=== PATIENT | male | born 1940 | race Caucasian/White ===

== ENCOUNTER 2016-06-28 17:00 | Inpatient (IN) | payer MEDICARE, OTHER ==
[~2016-06-28] VITALS: Ht 175.3 cm; Wt 63.6 kg
--- NOTE | ~2016-06-28 | DS ---
PATIENT'S NAME: WILNER DILLON [facility] AGE: 75 Y [address] ROOM: [id number] [place], [place] [address] LOCATION: [facility]U ADMIT DATE: 06/28/2016 Discharge Summary DISCHARGE DATE: 07/06/2016 FAMILY PHYSICIAN: Physician, Unknown ATTENDING PHYSICIAN: Liliane Sanchez HISTORY OF PRESENT ILLNESS: This 75-year-old male was transferred here from [facility] with the primary history of acute onset of difficulty tracking, which started on the morning of his admission. He played golf the day before, and did not have any problems. However, today, he noticed there were no symptoms to the left side, and actually did bumping to the wall on his left side primarily because of this difficulty. He also was noted to have difficulty putting on his shirt primarily because he could not manipulate his left hand into the shirt. He denies any headaches. He does not have any definite history of hypertension, except about two weeks ago, complained of some fatigue, and at that time, his blood pressure was slightly elevated. However, followup vital signs did not show persistent elevated high blood pressure. HOSPITAL COURSE: At the time of admission, the only abnormality on examination was a left homonymous hemianopsia on confrontation. There was no motor deficit and no sensory deficit apart from the visual problems noted above. The MRI of the brain, which he had on the day of admission then showed a right posterior temporal, as well as the right parietal intracerebral hemorrhage of varying age. From discussion with the radiologist, the feeling was that both the hemorrhages were subacute. While in the hospital, we went ahead and got a CT angiogram. The CT angiogram did not show any evidence of either aneurysm, or more significantly, any evidence of an arteriovenous malformation. He was initially admitted to the ICU (Intensive Care Unit), and was eventually transferred to the Neuro Trauma Unit. There was no further deterioration, and followup scan did not show any changes in the size of the hematomas that we had seen previously. He was seen in consultation by Dr. Faith, who felt that he would benefit from spending some time in the Rehabilitation Unit. He was also seen by the physiotherapist and the Occupational therapist. He was eventually transferred to the Inpatient Rehabilitation Unit on the 06 of July. 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 PATIENT'S NAME: WILNER DILLON [facility] AGE: 75 Y [address] ROOM: [address] [address] LOCATION: [facility] ADMIT DATE: 06/28/2016 Discharge Summary DISCHARGE DATE: 07/06/2016 FAMILY PHYSICIAN: Physician, Unknown ATTENDING PHYSICIAN: Liliane Sanchez MD MARIA FERNANDA PATE/esther /[id number] d: 07/07/16 0056 t: 07/11/16 1626, DISCHARGE SUMMARY
--- NOTE | ~2016-06-28 | HP ---
PATIENT'S NAME: WILNER DILLON [facility] AGE: 75 Y [address] ROOM: [place] [address] LOCATION: [facility] ADMIT DATE: 06/28/2016 History & Physical DISCHARGE DATE: FAMILY PHYSICIAN: PHYSICIAN, UNKNOWN ATTENDING PHYSICIAN: Liliane Sanchez DATE OF SERVICE: HISTORY OF PRESENT ILLNESS: I saw this 75-year-old male in the ICU today and was transferred here from [facility] with a primary complaint of acute onset of difficulty tracking, which occurred this morning. Yesterday, he went out and played golf, did not have any such problems, but today, he had some difficulty that he did bump while walking, fell into the wall on the left-side, and had difficulty putting the left arm of his shirt in, and had difficulty dressing primarily because he was putting the left-hand of the shirt inside out. He denies any headaches. He also denies any definite history of hypertension except he had a 2-week period when he complained of fatigue; and at that time, his blood pressure was slightly high. It was later reviewed by Dr. Artis Ruff; and at that time, his vital signs were normal and there was no evidence of hypertension. PAST MEDICAL HISTORY: He has had bilateral cataract surgery. The first one was on the 30 of May and the next was done on the 06 of June and he did not have any problems with that. In addition, he had inguinal herniorrhaphy many years ago and he is not sure which side he had the herniorrhaphy done. ALLERGIES: HE IS ALLERGIC TO PENICILLIN. MEDICATIONS: See the list in the admitting note. FAMILY HISTORY: Father had CT and stroke and also had diabetes, which was of late onset. His grandfather had CA of the prostate. REVIEW OF SYSTEMS: He denies any headaches. No neck pain. No chest pain. No abdominal pain. No weakness in the upper or lower extremities that he can perceive even though this morning when he was ambulating he did have some problems with his left lower extremity in the sense that while walking he had difficulty positioning his left lower limb. PHYSICAL EXAMINATION: PATIENT'S NAME: WILNER DILLON [facility] AGE: 75 Y [address] ROOM: [place] [address] LOCATION: [facility] ADMIT DATE: 06/28/2016 History & Physical DISCHARGE DATE: FAMILY PHYSICIAN: PHYSICIAN, UNKNOWN ATTENDING PHYSICIAN: Liliane Sanchez GENERAL: On examining him in the hospital, he is a 75-year-old male who is 5 feet, 9 inches tall, 145 pounds in weight. His blood pressure was 169/86, pulse was 67, was regular, respirations was 17, and O2 sats 98.5 on room air. HEENT: He had some abrasion on his nose and also the left-side of his face, which was where he ran into the wall this morning. Pupils were equal. NEUROLOGIC: He was awake. He was alert. He gave his all history. He is right-handed. NECK: There was no tenderness on palpating cervical spinous processes. No restriction of movement of the cervical spine. CHEST: Clear. HEART: Rate was regular. ABDOMEN: Soft. No area of tenderness. NEUROLOGICAL: The cranial nerve examination was normal. The motor examination was normal. Sensory exam was normal. There was no sensory inattention. Reflexes were normal. Toes were downgoing. Visual sifuentes, he had a left homonymous hemianopsia. LABORATORY DATA: He had an MRI of the brain done today and the MRI showed a right occipital hemorrhage with also right parietal hemorrhage and the MRI looked like both hemorrhages were subacute. IMPRESSION: Spontaneous intracerebral hemorrhage, query etiology. PLAN: The plan is to admit to the ICU, watching very carefully, and then follow the hemorrhage with MRIs and the MRI that he had which was with and without contrast did not really show any convincing evidence of a tumor. MD MARIA FERNANDA PATE/josel /[id number] D: [id number] T: [id number] HISTORY & PHYSICAL
--- NOTE | ~2016-06-28 | CON ---
PATIENT'S NAME: WILNER DILLON [facility] AGE: 75 Y [address] ROOM: [place] [address] LOCATION: [facility] ADMIT DATE: 06/28/2016 Consultation DISCHARGE DATE: FAMILY PHYSICIAN: PHYSICIAN, UNKNOWN ATTENDING PHYSICIAN: Liliane Puckett REFERRING PHYSICIAN: Mary Jane iDaz MD Consult for Dr. Puckett. This pleasant 75-year-old gentleman is referred for rehab/GIRP evaluation. He was admitted on 06/28/2016 with difficulty tracking and he ran into left side, wall on his left side, and suffered some abrasions on the forehead, left cheek, and nasal bridge, superficial. He is at the present time, reporting no headache, no dizziness, no vertigo. No nausea, no vomiting. No shortness of breath. Denied any double vision. He has however neglect of the left visual field and left distal temporal visual cut. He denies any similar condition in the past. Although says that way back and then a few months ago, he was not very able to keep the car on the d[place], but nothing has happened ever since. Except that he had cataract surgeries and he has been doing well. Also past history of significant, he had inguinal hernia repair, year unknown. Denied any smoking or drinking. ALLERGIES: HE IS ALLERGIC TO PENICILLIN. NOW, HE IS ALERT, WELL ORIENTED. VOICE IS CLEAR AND NOT WET. NO FACIAL WEAKNESS AND/OR DROOP AT THE PRESENT TIME. TONGUE AND SOFT PALATE ARE MOVING SYMMETRICAL. VOICE IS CLEAR AND NOT WET. VITALS: BLOOD PRESSURE 124/62, TEMPERATURE 98.6, PULSE IS 70, RESPIRATION RATE 20. HE IS 5 FEET 9 INCHES TALL AND WEIGHS 66.1 KG. HE IS AT THE PRESENT TIME ABLE TO WALK; HOWEVER, HE TRACKS TOWARDS THE LEFT AND RUNS INTO THINGS ON THE LEFT SIDE. HIS CT SCAN WITHOUT CONTRAST SHOWS TWO INTRACRANIAL BLEEDINGS, ONE OLD AND ONE NEW, AND AT THE PRESENT TIME, THERE IS NO GOOD EXPLANATION FOR THE INTRACRANIAL BLEEDING. DR. PUCKETT WAS ALSO THERE LATER ON AND HE SUGGESTED AN ARTERIOGRAM AND WE WILL SEE THE RESULT. PATIENT'S NAME: WILNER DILLON [facility] AGE: 75 Y [address] ROOM: [address] [address] LOCATION: [facility] ADMIT DATE: 06/28/2016 Consultation DISCHARGE DATE: FAMILY PHYSICIAN: PHYSICIAN, UNKNOWN ATTENDING PHYSICIAN: Liliane Puckett HE IS AT THE PRESENT TIME, MUSCLE STRENGTH ON THE LEFT SIDE ABOUT 4- TO 4/5 AND RIGHT SIDE 5/5. HE IS ON THE FOLLOWING MEDICATIONS. 1. OMEGA-3. 2. VITAMIN E. 3. VITAMIN D3. 4. ASCORBIC ACID. 5. NACL 0.9%. I FEEL THAT THIS GENTLEMAN WILL BENEFIT FROM INTENSIVE REHABILITATION. HE HAS BEEN AND INITIATED ON PT AND OT. I WILL ADD SPEECH THERAPY TO HIS THERAPIES, AND I FEEL THAT ABOUT 10 DAYS OF INTENSIVE REHABILITATION WILL BE GOOD ENOUGH FOR HIM TO GO BACK HOME AND BE MANAGED BY HIS . PLEASE SEE THE ORDERS. ALL THE ABOVE WAS EXPLAINED TO IN DETAIL. SHE VERBALIZED UNDERSTANDING AND AGREEMENT. THANK YOU FOR THIS REFERRAL. I WILL BE FOLLOWING ALONGSIDE WITH YOU. MD YONNY MACIAS/modl /[id number] d: 06/29/16 1442 t: 06/30/16 0842, CONSULTATION REPORT
[2016-06-28] MEDS ORDERED: VITAMIN E400 UNI2 PO (18:21)
[2016-06-28] MEDS ORDERED: ASCORBIC ACID500 MG PO (18:21)
[2016-06-28] MEDS ORDERED: ILEVRO1.7 ML OPHTH (18:21)
[2016-06-28] MEDS ORDERED: VITAMIN B-50 C0.4 MG PO (18:22)
[2016-06-28] MEDS ORDERED: SAW PALMETTO450 MG PO (18:22)
[2016-06-28] MEDS ORDERED: LUTEIN20 M1 PO (18:23)
[2016-06-28] MEDS ORDERED: VITAMIN D1000 UNIT PO (18:23)
[2016-06-28] MEDS ORDERED: FISH OIL 1,0001 EAC4 PO (18:23)
[2016-06-28] MEDS ORDERED: COQ-10100 MG PO (18:24)
[2016-07-05 04:26] LABS: CREATININE 0.9 mg/dL (0.6-1.3)
[2016-07-05 04:28] LABS: ESTIMATED GFR (MDRD EQUATION) > 60
== END 2016-07-06 09:20 | DRG 65 ==
LOC: GICU 17:35 → GPCU 17:35 → GICU 06-29 15:36 → GNTU 06-29 18:41 → GPCU 07-05 15:16
PROVIDERS: ADMIT Neurological Surgery
DX: I61.1 Nontraumatic intracerebral hemorrhage in hemisphere, cortical (principal); G81.94 Hemiplegia, unspecified affecting left nondominant side; H53.462 Homonymous bilateral field defects, left side; I10 Essential (primary) hypertension; Z88.0 Allergy status to penicillin; Z82.3 Family history of stroke; Z80.42 Family history of malignant neoplasm of prostate; Z98.42 Cataract extraction status, left eye; Z98.41 Cataract extraction status, right eye
CPT/HCPCS: Q9967

== ENCOUNTER 2016-07-06 09:37 | Inpatient (IN) | payer MEDICARE, OTHER ==
[~2016-07-06] VITALS: Ht 175.3 cm; Wt 63.2 kg
--- NOTE | ~2016-07-06 | DS ---
PATIENT'S NAME: WINLER DILLON [facility] AGE: 75 Y [address] ROOM: [address] [address] LOCATION: [facility] ADMIT DATE: 07/06/2016 Discharge Summary DISCHARGE DATE: 07/29/2016 FAMILY PHYSICIAN: Physician, Unknown ATTENDING PHYSICIAN: Fidencio Faith This 75-year-old gentleman was admitted to rehab unit on 07/06/2016, is discharged to home on 07/29/2016. 1. Unstable gait. 2. Dependent activities of daily and self-care. 3. Status post right occipital and right parietal hemorrhage, stable, not a surgical candidate with left hemianopsia and inability to attend to the left side visual field, at risk of falling. 4. He was put on intensive rehab. He is doing well, alert, and oriented now. PHYSICAL EXAMINATION: VITAL SIGNS: As follows: Blood pressure 120/66, temperature 97.7, pulse 68, respirations 14. GENERAL: He is able to ambulate in excess of 600 feet x1 with standby assistance. He sometimes runs into things on the left side, but has improved. He will continue on outpatient basis PT, OT, and Speech. Script has been given to him to go to outpatient for the time being twice per week for the 4 weeks. I will see him thereafter. Follow up with Dr. Sanchez as he sees fit. He must follow up with his family physician as soon as possible. Should not drive and/or operate any mechanical device until he is re- evaluated. MEDICATIONS: He is on the following medications: 1. Norvasc 2.5 mg p.o. daily. 2. B-complex one tablet daily. 3. Vitamin D 1000 units p.o. daily. 4. Folic acid 400 mg p.o. daily. 5. K-Tab 20 mEq p.o. daily. 6. Vitamin E 400 p.o. daily for 1 month and discontinue. 7. The patient's own medication, saw palmetto, p.o. daily one. FINAL DIAGNOSES: 1. Unstable gait. 2. Dependent on activities of daily and self-care. 3. Left side visual cut/neglect with left hemianopsia. Close clear repair PATIENT'S NAME: WILNER DILLON [facility] AGE: 75 Y [address] ROOM: [address] [address] LOCATION: [facility] ADMIT DATE: 07/06/2016 Discharge Summary DISCHARGE DATE: 07/29/2016 FAMILY PHYSICIAN: Physician, Unknown ATTENDING PHYSICIAN: Fidencio Faith evaluation. 4. Slight left-sided weakness in comparison to the right. 5. Status post right occipital and right parietal hemorrhage, subacute, not a surgical candidate. 6. Allergic to penicillin, per history. 7. Status post bilateral cataract surgery. First was done on one eye on May 30, 2016, and the second eye on June 06, 2016. 8. Status post inguinal hernia repair years back. 9. Osteoporosis. 10. Hypokalemia, still on treatment and stable. 11. Hypertension. DISCHARGE INSTRUCTIONS: The patient should not drive and/or operate any mechanical device. He should avoid alcoholic beverage also if at all possible. He must follow with his family physician as soon as possible. I will see him in 4 weeks. A script has been given to him. Follow up with Dr. Sanchez as he sees fit. All the above was explained to him and his . They verbalized understanding and agreement. MD YONNY MACIAS/josel /[id number] d: 07/29/16 0516 t: 07/29/16 0953, DISCHARGE SUMMARY
--- NOTE | ~2016-07-06 | CON ---
PATIENT'S NAME: ROBERT DILLON [facility] AGE: 75 Y [address] ROOM: [place] [address] LOCATION: [facility]P ADMIT DATE: 07/06/2016 Consultation DISCHARGE DATE: 07/29/2016 FAMILY PHYSICIAN: Physician, Unknown ATTENDING PHYSICIAN: Fidencio Knowles DATE OF CONSULTATION: 07/25/2016 REFERRING PHYSICIAN: Liliane Sanchez MD Team members reporting include Dr. Knowles; Mayra García, social work assistant; Zee Hill, RN; Debby Chambers, PT; Shae Moyer, PT; Hien Adams, OT; Shaina Malin, Speech Therapy; Dawn Miranda, therapeutic rec; Sister Adina Puga, Pastoral Care. CURRENT STATUS: Robert is a 75-year-old man admitted to our inpatient rehab unit following a CVA with visual neglect on the left side. He is continent of bowel and bladder. No skin or pain issues. The patient can transfer sit to supine and supine to sit, modified independence; sit to stand and stand to sit, bed to chair and chair to bed, all at modified independence. He can walk 600 feet with no assistive device at standby. He can climb 20 stairs with one railing, standby assistance going down, modified independence going up. His gait quality overall is improving. He continues to be at fall risk. He can dress his upper and lower body, standby; grooming and bathing, standby; shower transfer, standby; feeding, standby. He has met 2/12 long-term OT goals, set at modified independence. He does continue to improve. Continues to be unsteady at times. His comprehension, language, and expression are modified independence. Memory is minimal to standby assistance and problem solving, standby. DISCHARGE PLAN: The patient is receiving 3 hours of PT, OT, and Speech Sunday through Sunday. The patient has daily rehab, nursing, and physiatry involvement as well therapeutic recreational services 4 days per week. The patient has shown functional improvement and is progressing. Please see his plan of care for specific goals. Plan is for patient to discharge in approximately 1 week. Plan is for patient to return to home with his . MAYRA GARCÍA FOR FIDENCIO KNOWLES MD TD/josel PATIENT'S NAME: ROBERT DILLON [facility] AGE: 75 Y [address] ROOM: [place] [address] LOCATION: [facility] ADMIT DATE: 07/06/2016 Consultation DISCHARGE DATE: 07/29/2016 FAMILY PHYSICIAN: Physician, Unknown ATTENDING PHYSICIAN: Fidencio Knowles /[id number] d: 08/04/16 165 t: 08/28/16 1405, CONSULTATION REPORT
--- NOTE | ~2016-07-06 | CON ---
PATIENT'S NAME: ROBERT DILLON [facility] AGE: 75 Y [address] ROOM: [id number] [place], [place] [address] LOCATION: [facility] ADMIT DATE: 07/06/2016 Consultation DISCHARGE DATE: FAMILY PHYSICIAN: PHYSICIAN, UNKNOWN ATTENDING PHYSICIAN: Fidencio Knowles DATE OF CONSULTATION: 07/11/2016 REFERRING PHYSICIAN: Liliane Sanchez MD Team members reporting include Dr. Knowles; Mayra García, social insurance specialist; Mariia Brennan RN; Shae Moyer, PT; Debby Chambers, PT; Hien Adams, OT; Shaina Malin, Speech Therapy; Dawn Miranda, therapeutic rec; and Sister Adina Puga, Pastoral Care. CURRENT STATUS: Mr. Robert Dillon is a 75-year-old man admitted to our inpatient rehab unit on July 06, 2016, following a hemorrhagic stroke. The patient did have a spontaneous right occipital hemorrhage with right parietal hemorrhage. He has a history of bilateral cataract surgeries as well as status post inguinal hernia surgery. The patient had been very active in the community prior to this. The patient does have a left visual cut and neglect. He is continent of bowel and bladder. No skin issues. The patient is on a regular diet. Prealbumin is 18. Currently, at low nutritional risk. Eating 75% to 100%. The patient can complete sit to supine and supine to sit transfers at mod I; sit to stand and stand to sit, bed to chair and chair to bed transfers at standby. He can walk 400 feet with no assistive device at standby. He can climb 20 steps with one railing at contact guard assistance. Occasionally, he does not clear his foot. The patient is having difficulty overall with problem solving, processing, and some apraxia. His goals for PT were set at mod I. the patient can dress his upper body at standby; lower body, contact guard assistance; grooming, mod I; bathing, contact guard assistance; toilet and shower transfers, contact guard assistance; and toileting, contact guard assistance. Feeding is currently at standby. The patient is having some visual issues as well. His goals have been set for mod I. the patient's comprehension is at standby; language and expression, standby to mod I; memory, minimal to standby; and problem solving, minimal to standby. Home safety evaluation will be planned closer to discharge, and we will be taking the patient on an outing. The patient has been very open to pastoral care. DISCHARGE PLAN: The patient is receiving 3 hours of PT, OT, and speech Sunday through Sunday. The patient has daily rehab, nursing, and physiatry involvement as well as therapeutic recreational services 4 days per week. The patient has shown functional improvement and is progressing. Please see his plan of care for specific goals. Plan is for the patient to discharge in approximately 2 to 3 PATIENT'S NAME: ROBERT DILLON [facility] AGE: 75 Y [address] ROOM: [place] [address] LOCATION: [facility] ADMIT DATE: 07/06/2016 Consultation DISCHARGE DATE: FAMILY PHYSICIAN: PHYSICIAN, UNKNOWN ATTENDING PHYSICIAN: Fidencio Knowles. Plan is for the patient to discharge to home with if possible. MAYRA GARCÍA FOR FIDENCIO KNOWLES MD TD/modl /[id number] d: 07/14/16 1904 t: 08/03/16 1632, CONSULTATION REPORT
--- NOTE | ~2016-07-06 | CON ---
PATIENT'S NAME: WILNER DILLON [facility] AGE: 75 Y [address] ROOM: [id number] [place], [place] [address] LOCATION: [facility] ADMIT DATE: 07/06/2016 Consultation DISCHARGE DATE: FAMILY PHYSICIAN: PHYSICIAN, UNKNOWN ATTENDING PHYSICIAN: Fidencio Faith DATE OF CONSULTATION: 07/06/2016 REFERRING PHYSICIAN: Liliane Sanchez MD REFERRING PHYSICIAN: Fidencio Faith MD. CHIEF COMPLAINT: For medical management secondary to recent intracerebral hemorrhage. HISTORY OF PRESENT ILLNESS: This is a 75-year-old male who has a relatively benign past medical history. He was suffered a fall into the side of a wall on the left side of his face and went into a local emergency room where he was found to have an intracerebral hemorrhage in the right occipital and right parietal areas. He also had associated left-sided weakness and left-sided visual field cut. He was transferred from that emergency room to [facility] ICU under the care of neurosurgeon, Dr. Sanchez. He was monitored there nonsurgically and treated conservatively. He was stabilized and made some progress and underwent a consultation by our accounting machine operator, Dr. Fidencio Faith who thought he would benefit from inpatient rehab for further restorative care. He was transferred to inpatient rehab on July 06, 2016, and we have been asked for medical management consultation. When I went to visit Wilner, he is sitting in his wheelchair, calm, cooperative, alert, and oriented with examination. He is resting comfortably. He denies any lightheadedness or dizziness. He denies any headaches. He does complain of his visual field cut on his left side. He denies any chest pain, palpitations, or any history of heart murmurs. He denies any shortness of breath or coughing. He denies any nausea, vomiting, diarrhea, or constipation. He does not have any noted melena in his stool. He does not have any complaints of urinary difficulties. He does take saw palmetto for urinary urgency, which he does say helps. He denies any burning or painfulness upon urination. He does complain of left lower extremity weakness. He denies any weight gain or weight loss. He denies any polyphagia, polyuria, or polydipsia. His mood is good. REVIEW OF SYSTEMS: A 10-point review of systems was done and was negative other than mentioned above in the HPI. PATIENT'S NAME: WILNER DILLON [facility] AGE: 75 Y [address] ROOM: [id number] [place], [place] [address] LOCATION: [facility] ADMIT DATE: 07/06/2016 Consultation DISCHARGE DATE: FAMILY PHYSICIAN: PHYSICIAN, UNKNOWN ATTENDING PHYSICIAN: Fidencio Faith ALLERGIES: PENICILLIN, UNKNOWN RESPONSE. MEDICATIONS: Home medications are as follow: 1. Ascorbic acid 250 mg p.o. daily. 2. Vitamin D3 1000 units p.o. daily. 3. Lutein 20 mg p.o. daily at noon. 4. Nepafenac 1 drop ophthalmic every night at bedtime to the left eye. 5. [place]-3 fish oil 1000 mg p.o. daily. 6. Saw palmetto 450 mg p.o. daily. 7. CoQ10 100 mg p.o. daily at noon. 8. Vitamin B complex 1 tablet p.o. daily. 9. Vitamin E 400 units p.o. daily at noon. PAST MEDICAL HISTORY: Urinary urgency. PAST SURGICAL HISTORY: 1. Recent bilateral cataract surgery to each eye in May of 2016. 2. Repair of inguinal hernia. FAMILY HISTORY: Father had a history of coronary complications and diabetes. His grandfather had prostate cancer. SOCIAL HISTORY: The patient is and retired. Relatively active, lots of golf and be in the outdoors. He denies any smoking or alcohol use. He denies any illicit drug use. He is of [employer]. PHYSICAL EXAMINATION: VITAL SIGNS: Most recent vital signs show temperature of 97.4 orally, pulse 76, respiratory rate of 16, blood pressure of 136/65, and oxygen saturations are 97% on room air. He is 63.80 kg, a BMI is 20.7. GENERAL: This is a 75-year-old, male, who appears in no acute distress. Condition is good. He is calm and cooperative with examination. HEENT: Head is normocephalic, atraumatic. Eyes: Extraocular movements are intact. He does have noted left-sided visual field deficit when tested. He denies any maxillary or frontal tenderness. There are no swallow problems. Gag reflex is present. NECK: Supple without any lymphadenopathy or thyromegaly. LUNGS: Equal with symmetric expansion. They are clear throughout all sifuentes. There is no wheeze or adventitious sounds. PATIENT'S NAME: WILNER DILLON [facility] AGE: 75 Y [address] ROOM: [id number] [place], [place] [address] LOCATION: [facility] ADMIT DATE: 07/06/2016 Consultation DISCHARGE DATE: FAMILY PHYSICIAN: PHYSICIAN, UNKNOWN ATTENDING PHYSICIAN: Fidencio Faith HEART: Regular rhythm without any gallop or murmur. S1, S2 present. He has no pedal edema. 2+ pulses are throughout all extremities. He has no carotid bruit. ABDOMEN: Flat, soft, nontender, and nondistended. Bowel sounds are present through all 4 quadrants. No organomegaly appreciated. MUSCULOSKELETAL: Equal and symmetric limbs. No clubbing or cyanosis noted. NEURO: Cranial nerves 2-12 grossly intact. He does have left field visual deficit as well as left-sided weakness. 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 Left lower extremity strength 4/5 and right lower extremity strength 5/5. No sensory deficit noted. PSYCHOLOGIC: Mood and affect are good. LABORATORY DATA: Creatinine was 0.9, GFR was greater than 60. RADIOLOGIC IMAGING: Most recently, a CT of the brain without contrast on July 03 shows a stable head CT with areas of hemorrhage showing expected involutionary changes in the short interval, no new abnormalities. An MRI of functional head shows the evolving partially liquified hematoma is present in the right parietal lobe and smaller within the right posterior temporal lobe. There was surrounding edema. The larger right parietal hematoma has primary mass effect upon the parietal subcortical U-fibers and also has mass effect upon the posterior right aspect of the corpus callosum. There is no mass effect of the occipital lobe. IMPRESSION AND PLAN: This 75-year-old male, asked in consultation for medical management. We will have a plan as follows: 1. Status post right occipital parietal intracerebral hemorrhage, appears to have been spontaneous occurrence with no exact etiology known. We will continue to observe blood pressures. Continue with Neurosurgery recommendations and following of Dr. Sanchez. Imaging will need to be serial to observe. 2. Late effect secondary to status post right occipital parietal intracerebral hemorrhage with left hemiparesis and left hemianopsia. To continue restorative plan as per the Physiatry orders between physical and occupational therapies with goal is to returning home independently. 3. Urinary urgency. He has seen a urologist in the past. Takes saw palmetto without any complications or problems. We will continue observation. 4. Recent cataract removal of both eyes in late May 2016, which we recommended to continue current eye drops formulations. PATIENT'S NAME: WILNER DILLON [facility] AGE: 75 Y [address] ROOM: [place] [address] LOCATION: [facility] ADMIT DATE: 07/06/2016 Consultation DISCHARGE DATE: FAMILY PHYSICIAN: PHYSICIAN, UNKNOWN ATTENDING PHYSICIAN: Fidencio Faith 5. Code status is full code. 6. His above line of management was discussed with the patient and the family who stated complete agreeance of the plan. All questions were answered with statements of understanding. Thank you for allowing us to participate in this patient's care with this consultation. Thank you, Dr. Faith. JAGUAR PIZANO APRN, APRN FOR MD FLAKITO PARKS/esther /[id number] d: t: 07/06/162042, CONSULTATION REPORT
--- NOTE | ~2016-07-06 | HP ---
PATIENT'S NAME: WILNER DILLON [facility] AGE: 75 Y [address] ROOM: [place] [address] LOCATION: [facility] ADMIT DATE: 07/06/2016 History & Physical DISCHARGE DATE: FAMILY PHYSICIAN: PHYSICIAN, UNKNOWN ATTENDING PHYSICIAN: Serg Faith DATE OF SERVICE: HISTORY: This 75-year-old gentleman is admitted for continuous medical treatment and intensive rehabilitation to rehab unit at [facility] on 07/06/2016. He is unstable with his gait base to the left and has left visual neglect and visual cut. He is known to have minimum left-sided weakness, however, he has spontaneous right occipital hemorrhage with also right parietal hemorrhage, both of them subacute as per MRI. He is admitted for continuous medical treatment and intensive rehabilitation. I saw this gentleman on initial consult on 06/29/2016 and recommended intensive rehab for about 2 weeks. On today's evaluation on 07/06/2016, he is still running into objects and is at high risk of falling and is still weak slightly on the left side and with visual cut of the left side. I will recommend intensive rehabilitation for about 10-14 days aiming to discharge home at modified independence. He is at the present time alert, oriented. Vital Signs: Blood pressure 128/83, temperature 98.3, pulse 75 and regular, respirations 16. He is 5 feet 9 inches and weighs 63.6 kg. ALLERGIES: HE IS ALLERGIC TO PENICILLIN AND CONTRAST IV DYE. PAST MEDICAL HISTORY: Past history of significant, 1. History of bilateral cataract surgery, first was on 30 May and 2nd was on 06 of June. 2. Status post inguinal hernia repair years ago. At the present time, he is able to comprehend and express without difficulty. PATIENT'S NAME: WILNER DILLON [facility] AGE: 75 Y [address] ROOM: [place] [address] LOCATION: [facility] ADMIT DATE: 07/06/2016 History & Physical DISCHARGE DATE: FAMILY PHYSICIAN: PHYSICIAN, UNKNOWN ATTENDING PHYSICIAN: Serg Faith Head normocephalic. Cranial nerves 2 through 12 are within normal except for the left visual cut and neglect slightly also. Tongue and soft palate are moving symmetrical. He can swallow without difficulty. Voice is clear and not wet. He can move all 4. Muscle strength is minimally weaker on the left side in comparison to the right. He is on the following medications: 1. Ascorbic acid 500 mg a daily, give 250 mg p.o. daily. 2. Vitamin D 1000 units daily. 3. Fish oil 1000 mg daily. 4. [place]-3 1000 mg daily. 5. Vitamin E 400 mg q.i.d. The patient's own medication: 1. Saw palmetto 1 capsule daily. 2. Ophthalmic drops: The patient's own medication 1 drop every eye at bedtime. 3. Sodium chloride IV per protocol p.r.n. 4. Tylenol 650 q.4-6 hours as needed, do not exceed acetaminophen 4 g q.24 hours. 5. Ilevro ophthalmic 1 at bedtime. 6. Vitamin B 1 tablet p.o. daily. 7. Saw palmetto 450 mg p.o. daily. 8. Lutein 20 mg p.o. daily. 9. Vitamin D3 1000 units p.o. daily. 10. CoQ-10 100 mg p.o. daily. ASSESSMENT AND PLAN: We will at the present time put on intensive PT/OT 3 hours per day, 15 hours per week for the coming 2 weeks aiming to discharge modified independent. In a.m., we will send for urinalysis with reflex microscopy. CBC with automated differential. CMS. Prealbumin. The patient will be attending both PT, OT, and speech, and then upon discharge, we will follow thereafter and we are expecting to achieve modified independence before discharge. All the above was explained to him and his in detail. They verbalized PATIENT'S NAME: WILNER DILLON [facility] AGE: 75 Y [address] ROOM: [place] [address] LOCATION: [facility] ADMIT DATE: 07/06/2016 History & Physical DISCHARGE DATE: FAMILY PHYSICIAN: PHYSICIAN, UNKNOWN ATTENDING PHYSICIAN: Serg Faith understanding and in agreement with plan of care. SERG FAITH MD WMS/modl /[id number] D: [id number] T: [id number] HISTORY & PHYSICAL
--- NOTE | ~2016-07-06 | CON ---
PATIENT'S NAME: ROBERT DILLON [facility] AGE: 75 Y [address] ROOM: [id number] [place] [address] LOCATION: [facility] ADMIT DATE: 07/06/2016 Consultation DISCHARGE DATE: 07/29/2016 FAMILY PHYSICIAN: Physician, Unknown ATTENDING PHYSICIAN: Fidencio Knowles DATE OF CONSULTATION: 07/18/2016 REFERRING PHYSICIAN: Liliane Sanchez MD Team members reporting include Dr. Knowles; Mayra García, protective services social worker; Zee Hill, RN; Debby Chambers, PT; Shae Moyer, PT; Deborah Sanchez, OT; Shaina Malin, Speech Therapy; Dawn Miranda, therapeutic rec; Sister Adina Puga, Pastoral Care. CURRENT STATUS: Robert is a 75-year-old man admitted to our inpatient rehab unit following a CVA. The patient has left visual neglect. The patient is continent of bowel and bladder. No skin or pain issues. The patient is on a regular diet, eating 75% to 100%. Currently, at low nutritional risk. The patient can complete sit to supine and supine to sit transfers at modified independence; sit to stand and stand to sit transfers at standby; and bed to chair and chair to bed transfers at standby. He can walk at standby assistance. He does have difficulty with fluency and step clearance. Overall, it is getting better. He can climb 20 stairs with one railing at standby assistance with cues for safety. He is able to dress his upper and lower body at standby; grooming and bathing, standby; toilet transfers and shower transfers, contact guard assistance; and toileting, standby. Feeding is standby. Home management is minimal assistance. His 9-hole peg test has improved significantly. He has met 0/2 short-term OT goals. We plan to do a home safety evaluation soon. The patient's comprehension, language, and expression are modified independence; memory and problem solving, minimal assistance. The patient does occasionally have loss of balance. He likes to do outings, but reports lots of fatigues. He is getting an order to go on an outing to restorationist. He occasionally has difficulties with sequencing and path finding, missing things to the left. DISCHARGE PLAN: The patient is receiving 3 hours of PT, OT, and speech [place] through Sunday. The patient has daily rehab, nursing, and physiatry involvement as well as therapeutic recreational services 4 days per week. The patient has shown functional improvement and is progressing. Please see his plan of care for specific goals. Plan is for the patient to discharge in approximately 1 to 2 weeks. Plan is for the patient to return to home with here in [place], [place]. PATIENT'S NAME: ROBERT DILLON [facility] AGE: 75 Y [address] ROOM: [address] [place], [place] [address] LOCATION: [facility] ADMIT DATE: 07/06/2016 Consultation DISCHARGE DATE: 07/29/2016 FAMILY PHYSICIAN: Physician, Unknown ATTENDING PHYSICIAN: Fidencio Knowles MAYRA GARCÍA FOR FIDENCIO KNOWLES MD TD/modl /[id number] d: 08/04/16 1632 t: 08/28/16 1402, CONSULTATION REPORT
--- NOTE | 2016-07-06 09:30 | NUR ---
Pt admitted from [facility]. and nurse with pt. Pt able to amb from w/c to chair, 1 assist, julián. well. Slight left sided weakness noted. Strong grasp equally, but noted that left arm raise is not as strong as right. denied any numbness/tingling. Pt is alert and oriented x 3. Pleasant and cooperative with admission process. Pt passing flatus and denied any nausea. Pt denied any pain.
[~2016-07-06 09:37] MED LIST: ASCORBIC ACID500 MG PO; COQ-10100 MG PO; FISH OIL 1,0001 EAC4 PO; ILEVRO1.7 ML OPHTH; LUTEIN20 M1 PO; SAW PALMETTO450 MG PO; VITAMIN B-50 C0.4 MG PO; VITAMIN D1000 UNIT PO; VITAMIN E400 UNI2 PO
--- NOTE | 2016-07-06 16:35 | NUR ---
Significant Event: Pt up in room to BR with belt, 1 assist, Mame. well. Left visual field neglect, so at times needs guidance visually. Minimal Left sided weakness, leans left. No BM today, last was 07/05. Void x 1, missed obtaining UA, continue to need UA. Denied all pain. Cooperative with cares. Follow up: UA, activity, safety
[2016-07-06 19:56] LABS: BILIRUBIN URINE NEGATIVE (NEGATIVE); BLOOD URINE NEGATIVE /UL (NEGATIVE); COLOR URINE YELLOW (YELLOW); GLUCOSE URINE NEGATIVE (NEGATIVE); KETONE URINE 5 mg/dL (NEGATIVE); LEUKOCYTES URINE NEGATIVE /UL (NEGATIVE); NITRITE URINE NEGATIVE (NEGATIVE); PROTEIN URINE NEGATIVE (NEGATIVE); SPEC GRAVITY URINE 1.025 (1.003-1.035); TURBIDITY URINE CLEAR (CLEAR); UROBILINOGEN URINE NORMAL (NORMAL)
--- NOTE | 2016-07-07 03:34 | NUR ---
Significant Event: Patient is alert and oriented x 3. VSS. Up one asist handheld assist with GB. Gait is slightly unsteady leans to the left. Left side effected. Has good strength but the left is weaker then the right. Has left visual field neglect. Was able to dress himself with very little assist left hand is uncoordinatedwhich make it hard for him. Denies pain or discomfort. UA was obtained and sent to the lab. Alarm for safety may be forgetful. Follow up:
[2016-07-07 05:58] LABS: BASOPHIL % 0.5 %; EOSINOPHIL # 0.1 K/uL (0.0-0.5); IMMATURE GRANULOCYTE % 0.3 %; LYMPHOCYTE # 1.1 K/uL (0.8-4.0); LYMPHOCYTE % 19.5 %; MCH 31.2 pg (27.0-34.0); MCHC 33.3 gm/dL (32.0-36.5); MCV 93.5 fl (83.0-98.0); MONOCYTE # 0.5 K/uL (0.0-1.0); MONOCYTE % 9.2 %; MPV 10.2 fl (9.4-12.4); NEUTROPHIL # (ANC) 4.1 K/uL (1.4-9.0); NEUTROPHIL % 69.5 %; NRBC % 0 /100WBC (0-0.00); PLATELET COUNT 159 K/uL (150-450); RBC 4.17 M/uL (3.50-5.50); RDW-CV 12.5 % (11.9-14.6); WBC 5.8 K/uL (4.0-11.0)
[2016-07-07 06:07] LABS: ALBUMIN 3.1 gm/dL (3.5-5.0); ALK PHOS 62 IU/L (33-138); ALT 21 IU/L (12-78); ANION GAP 13.8 (10.0-19.0); AST 20 IU/L (10-40); BLOOD UREA NITROGEN 23 mg/dL (6-24); CALCIUM 8.7 mg/dL (8.5-10.5); CHLORIDE 108 mMol/L (96-110); CO2 26 mMol/L (22-32); CREATININE 0.8 mg/dL (0.6-1.3); ESTIMATED GFR (MDRD EQUATION) > 60; POTASSIUM 3.8 mMol/L (3.7-5.1); SODIUM 144 mMol/L (135-145); TOTAL BILIRUBIN 0.5 mg/dL (0.0-1.5); TOTAL PROTEIN 6.6 g/dL (6.0-8.4)
--- NOTE | 2016-07-07 08:33 | NUR ---
D: Therapeutic Recreation Initial Assessment on the 07/07/16. I: Patient seen for 2 units at 833 to begin initial evaluation. Pt has dx of CVA. R: Patient's current living situation and status: condo Home entrance steps: 2 Living with: spouse Spouses name: Mary Jane # of children: 3 none close by but step children Driving: yes, spouse does drive (cars) Ambulating: I Equipment: N/A Hand Dominance: Right [employer] Counter Person strength: L) side affected Eye sight: glasses, neglect Reading ability: N/T Hearing: no problem Speech: clear Cognition: alert Comprehension: fair Following directions: yes Initiating: yes Eye contact: good Affect: bright COMMUNITY INVOLVEMENT: out to eat, grocery shopping, tenriism weekly, Bible study, visit family and friends, some volunteer work, [employer] event, grandchildren event, golf LEISURE INTERESTS: outdoors, fishing, hunting, hiking, computer, watch TV, garden, read newspaper, magazines, books, dog - snoopy Patient is referred by medical staff for treatment and evaluation in the following areas: Community Skills, Functional Leisure Skills, Participation, Leisure Education/Behaviors, Family Education. Information obtained: Interview, Chart Review, Observation, other. BARRIERS TO LEISURE: Physical Patient determined to be: APPROPRIATE FOR THERAPEUTIC RECREATION ASSESSMENT. TREATMENT WILL INCLUDE: Community living skills training Functional leisure development Physical skills development Leisure education Emotional/behavioral adaptation Family education Community resources/packet TARGET EQUIPMENT/INFORMATION: Parking Permit TO ASSESS NEED Community Resources Energy conservation in community setting Van/Service/Taxi Scrip Adapted Leisure Equipment Stress management/Relaxation techniques Functional car transfers Leisure Education Behaviors: Attitude, Awareness, Participation. Patient functional skills level and potential: Good, pt has fair mobility with vision problems along with concerns for coping. Patient oriented ot TR services on Rehab unit. Pt/family provided input into goals setting and plan of care. Pt's goal is to play goal and return to fishing. P: Target date set with personal goals established. Will continue with POC focusing on pt/family training and education. For additional information please see Nursing Data Base, PT, OT, CM, ST, initial assessments to [facility] and Interdisciplinary Assessments.
--- NOTE | 2016-07-07 13:17 | NUR ---
Significant Event: PATIENT UP 1 ASSIST, HAND HOLD, GAIT BELT. ALERT AND ORIENTED X3. COOPERATIVE WITH CARES. FEEDS SELF WELL. DENIES PAIN. AT BEDSIDE TODAY. CONTINENT OF BOWEL AND BLADDER. VITALS STABLE ON ROOM AIR. SLIGHTYLY UNCOORDINATED WITH LEFT HAND. DENIES NUMBNESS OR TINGLING. MEDS WHOLE WITH WATER. CALLS APPROPRIATELY. TOLERATED THERAPY WELL TODAY. Follow up:
--- NOTE | 2016-07-08 04:44 | NUR ---
Patient alert and oriented. Transfers 1A Hand Hold. leans to the left at times. L) hand can be uncoordinated at times. denies pain. at bedside until the late evening. Continent of bladder and bowel. Cooperative with cares. VSS.
--- NOTE | 2016-07-08 14:50 | NUR ---
Significant Event: Patient alert and oriented. Has some left sided weakness. Saline lock discontinued. Therapy gave the OK for to help him to the bathroom and walk in halls. Did car transfer with therapy today also. Follow up:
--- NOTE | 2016-07-09 05:07 | NUR ---
Patient alert and oriented. Transfers 1A gb/ hand hold. Has minimal L) sided weakness, L) hand uncoordinated at times. Plans to go out with this afternoon, okay'd by therapy. at bedside this evening. Cooperative with cares.
--- NOTE | 2016-07-09 15:09 | NUR ---
Significant Event: Patient is alert and oriented x3. VSS on RA. Lungs are clear. Bowel sounds are active. Ambulates with one assist, gaitbelt and hand hold. Slight left sided weakness. Lack of coordination in left hand. Patient has the okay to go out with family. and family at bedside. Pleasant and cooperative with cares. Follow up:
--- NOTE | 2016-07-09 15:22 | NUR ---
Significant Event: Patient is alert and oriented x3. VSS on RA. Lungs are clear. Bowel sounds are active. Ambulates with one assist, GB and walker. okayd patient to go out with family. Pleasant and cooperative with cares. Follow up:
--- NOTE | 2016-07-10 04:47 | NUR ---
Patient alert and oriented. Transfers 1A hand hold. was okay'd to help walk patient and was at bedside this evening. VSS. L) side uncoordinated at times. Denies pain. Cooperative with cares.
--- NOTE | 2016-07-10 11:44 | NUR ---
Significant Event: Patient alert and oriented. 1 assist. Ok for to walk and transfer patient. Some left sided weakness and deficit. Follow up:
--- NOTE | 2016-07-10 19:53 | NUR ---
A-SCREENED D/T LOS; NEW ADMIT TO [facility] DX: CVA W/L)SIDED WEAKNESS HT: 69 IN. CBW: 63.1 KG. 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 07/07-PREALB 18.0 MEDS: VIT C, E, D, FOLIC ACID, FISH OIL, Z-GEN, PRN BOWEL MEDS DIET RX: REGULAR. PO INTAKE 75-100% FOR THE MOST PART EST NUTR NEEDS: [id number] KCALS (25-30 KCALS/KG) 63-69 GM PROTEIN (1.0-1.1 GM PROTEIN) 1 ML FLUID/KCAL D-NOT AT NUTRITION RISK; NO NUTRITION DX IDENTIFIED I-CONTINUE W/CURRENT DIET RX M/E-WILL ASSIST NEEDED
--- NOTE | 2016-07-10 21:45 | NUR ---
Alert and oriented. Activity with 1 assist. Okay for to assist patient with transfers and ambulation. Left sided weakness. BM tonight.
--- NOTE | 2016-07-11 14:18 | NUR ---
D: TR progress note for 07/11/16. I: Pt seen for 2 units for 838 leisure education, scanning, fine motor skills, and functional mobility. R: Pt seen for functional skills building working on visual scanning, LUE coordination, fine motor skills and functional mobility. After use of bathroom able to complete hand hygiene from standing position at sink, transferred back to [facility] with cues for posture. Pt worked on scanning and motor skills using cards, able to sort in suits with 100% accuracy and completed numerical task chris-dano utilizing BUE within time allotted demonstrating fair motor skills. Pt completed matching pattern sheet 03/20 after cues for scanning L) x1. Education done utilization of leisure to promote recovery. P: Will continue to see to address goals and plan of care.
--- NOTE | 2016-07-11 14:48 | NUR ---
Significant Event: Patient alert and oriented x 3. Up with 1A hand held. Okay for to transfer. Denies pain. Left sided weakness. Participated in all therapies. Cooperative with cares. Continent of bowel and bladder. Follow up:
--- NOTE | 2016-07-12 04:53 | NUR ---
Alert and oriented. Calls for asssitance as needed. Is up with one person gaitbelt/handheld assist. Left sided weakness and left visual deficit. Denies pain. may transfer pt, so she did all hs cares and assist pt to bed. Voided once per urinal in the night.
--- NOTE | 2016-07-12 11:45 | NUR ---
D: TR progress note for 07/12/16. I: Pt seen for 2 units at 1100 in group session for education on safety when around pets/animals, and leisure education. R: Pt seen for functional skills building working on fine motor skills, scanning, safety awareness and functional social communication in anticipation for discharge back into community/home where animals will be present. Pt's spouse present for session. Pt independent with personal introduction of self and sharing with group about pet dog. Pt independent for scanning and utilized BUE during Animal Assisted Therapy. Education done on safety with ambulation/mobility in homes when around animals, safety with possibility of poor skin integrity and utilizing pets to assist with coping and stress/pain management when opportunity available. P: Will continue to see to address goals and plan of care.
--- NOTE | 2016-07-12 14:40 | NUR ---
Significant Event: Follow up: UP with hand held assistance to toilet, to shower , into wheelchair. left side weakness and left visual cut, no pain,
--- NOTE | 2016-07-13 02:40 | NUR ---
Significant Event: Patient is alert and oriented, VSS. Up with GB/ hands on. Takes meds whole. Has Left side weakness and visusl deficit. Patient works very hard doing his own ADL's and needs very little assist. is present most of the time and attentive to his needs. Denies pain or discomfort. Follow up:
--- NOTE | 2016-07-13 14:16 | NUR ---
Significant Event: PATIENT UP 1 ASSIST, HAND HOLD. ALERT AND ORIENTED X3. VITALS STABLE ON ROOM AIR. NO SKIN ISSUES. CALLS APPROPRIATELY. CONTINENT OF BOWEL AND BLADDER. AT BEDSIDE IS ABLE TO HELP HIM AMBULATE IN ROOM. PATIENT DRESSED HIMSELF INCLUDING APPLYING TEDS. STILL HAVING WEAKNESS TO LEFT HAND, SLIGHTLY UNCOORDINATED. LEFT VISUAL DEFICIT. MEDS WHOLE WITH WATER. DENIES PAIN. TOLERATES THERAPY WELL. Follow up:
--- NOTE | 2016-07-14 04:28 | NUR ---
Significant Event:Pt states had bm around noon on 07/13. Voids in br without difficulty. Up with gaitbelt and handheld assist. here during evening and ambulates in carroll/room providing assistance. 151/70. Left hand uncoordinated, does have moderate grasp. Lifts/moves legs bilat with minimal deficit observed. Meds whole with sips water. Has left visual peripheral neglect. Denies pain or numbness/tingling. Follow up:
--- NOTE | 2016-07-14 11:04 | NUR ---
[facility] Case Management Prefunctioning and Psycho-Social Initial Assessment for 07/06/16 and Case Conference Note for 07/11/16 D: Initial Char Filter Tank TenderCuprous Chloride Operator and Case Conference Note. I: Input from: patient, family, Dr. Sanchez, Dr. Faith, Garima Deluna manufacturing quality manager, and Mayra García LCSW R: Reason for admission: spontaneous intracerebral hemorrhage. Admission Date to [facility]: 07/06/16 Admission Date to Hospital: 06/28/16 Prior level of functioning: patient was independent with adl's and household prior to stroke. Prior living situation: two story house Financial resources/expectations: patient has Medicare and [employer]. Resources used: walk-in shower Resources available: HHC, outpatient therapy, SNF, [facility], [facility], DME. Family support available: family Understands nature of health condition: yes Recognizes impact of health condition on lifestyle: yes Vocational/Educational: retired Behavior/Emotional needs: cues for safety. Monitor for signs and symptoms of depression and anxiety. Legal concerns: none. Discharge goal: home with support. Assessment: Robert is a 75 years old man from [place], [place] admitted after hemorrhagic stroke. Patient has good family support. Team conference was held and plan is d/c in 2-3 weeks. Will follow and assist as needed. Orientation to the program and CM services completed with Patient. Initial plan of care and estimated length of stay discussed, disclosure statement reviewed including patient assessment rights. P: Target date and individual goals established. Please see POC for details. For additional information please see Nursing Data Base, PT, OT, TR, ST, Initial assessments to [facility].
--- NOTE | 2016-07-14 13:09 | NUR ---
Significant Event:THERAPY REPORTED A REGRESSION IN PT'S STRENGTH, NOTED YESTERDAY. CT SCAN DONE THIS AM, REPORTING SOME SWELLING STILL PRESENT, DR HANSON PLANS TO WATCH FOR 1 MORE WEEK AND WILL HAVE ANOTHER CT SCAN NEXT WEEK TO SEE IF ANY CHANGE THEN, NOTE REPORT. PT HAS BEEN ALERT AND ORIENTATED X 3, VS FOR EVERY 3 HOURS DISCONTINUED, WNL. PT ATTENDED THERAPY SCHEDULED. CONTINUES TO HAVE WEAKNESS TO LEFT HAND, SLIGHTLY UNCOORDINATED, AND LEFT VISUAL DEFICIT. TAKES MEDS WHOLE WITH WATER, DENIES PAIN. VISIT @ INTERVALS, AND IS GOOD SUPPORT FOR PT. PT HAS BEEN PLESANT AND COOPERATIVE WITH PLAN OF CARE. PT DENIES ANY HEADACHE. Follow up:DENIES PAIN. MONITOR ANY REVERSE CHANGES OF CURRENT STATUS NEEDED.
--- NOTE | 2016-07-14 13:14 | NUR ---
D: TR progress note for 07/14/16. I: Pt seen for 6 units at 1100 for community integration skills building, functional transfers, and family training R: Pt seen for functional skills building working on mobility, scanning, transfers, community integration and family education in anticipation for discharge back into community. Pt taken by Therapies (TR/OT) to [facility] for training, safety and community education. Pt's spouse present for session, transferred into their car with spouse providing all hands on assistance and Therapies SBA for safety and cues. Pt transferred sit > stand from SBA, ambulated to vehicle 3 feet CGA and transferred into vehicle CGA with cues for hand placement and safety. Pt ambulated with hand held assist community distances 200+ feet through 4 thresholds, over 4 rugs and in busy community environment all CGA with no LOB but poor scanning L) AEB running spouse into pole in restaurant. Pt was independent with reading menu, ordering own food, eating and completed community transfer in/out of low sanchez CGA with cues for safety as attempting to stand while LE still under table. Education and training done with spouse on car transfers, safety with enter ways, community and visual concerns. Pt's affect bright with good functional social interaction during session but upon return to [facility] noted increase in fatigue and safety concerns with balance, RN informed. P: Will continue to see to address goals and plan of care.
--- NOTE | 2016-07-15 03:29 | NUR ---
Significant Event: Patient alert and oriented. Left upper extremity remains weak. Left visual neglect. Patient able to recognize that he does not always acknowledge left side of his body. VSS on room air. Denies pain. Denies abnormal sensation. Up with 1 assist. Rested well throughout shift. Pleasant and cooperative with cares. Follow up: continue to monitor
--- NOTE | 2016-07-15 13:16 | NUR ---
Significant Event: PATIENT UP 1 ASSIST, HAND HOLD. ALERT AND ORIENTED X3. COOPERATIVE WITH CARES. AT BEDSIDE, ABLE TO HELP HIM AMBULATE. CONTINENT OF BOWEL AND BLADDER. BM TODAY. NO ISSUES SWALLOWING, MEDS WHOLE WITH WATER. FEEDS SELF WELL. SOME UNCOORDINATED MOVEMENTS WITH LEFT HAND. LEANS LEFT WHEN WALKING. VITALS STABLE ON ROOM AIR. NO COMPLAINTS OF PAIN. Follow up:
--- NOTE | 2016-07-16 04:05 | NUR ---
Significant Event: Patient is alert and oriented x 3, VSS. Up one assist with GB/ hands on. Patient leans to the left when ambulating, gait fairly steady. Is able to dress himself, is alittle uncoordinated with left side has L) side visual deficit. Uses call light appropriatly. Alarmed at night for safety. Denies pain or discomfort. is present most of the time and is attentive to his needs. Follow up:
--- NOTE | 2016-07-16 13:54 | NUR ---
Significant Event: PATIENT UP 1 ASSIST, HAND HOLD, GAIT BELT. ALERT AND ORIENTED X3. AT BEDSIDE VERY HELPFUL. CONTINENT OF BOWEL AND BLADDER. NO ISSUES SWALLOWING. LEFT SIDED VISUAL DIFFICULTY. LEFT HAND SLIGHTLY UNCOORDINATED. LEANS LEFT WHEN WALKING BUT IS FAIRLY STEADY. HELPS HIM AMBULATE. GOOD APPETITE, NO ISSUES SWALLOWING. NO PAIN. VITALS STABLE ON ROOM AIR. Follow up:
--- NOTE | 2016-07-17 03:40 | NUR ---
Significant Event: Patient is alert and oriented x 3, VSS. Up one hands on with GB. Gait is mostly steady. Takes meds whole with water. is here most of the day and is attentive to his needs. Patient denies pain or discomfort. Uncoordinated on the left has a left visual deficit. Uses call light appropriatly. Follow up:
[2016-07-17 05:59] LABS: ALK PHOS 73 IU/L (33-138); ALT 22 IU/L (12-78); ANION GAP 11.4 (10.0-19.0); AST 20 IU/L (10-40); BLOOD UREA NITROGEN 14 mg/dL (6-24); CALCIUM 8.5 mg/dL (8.5-10.5); CHLORIDE 109 mMol/L (96-110); CO2 27 mMol/L (22-32); CREATININE 0.8 mg/dL (0.6-1.3); ESTIMATED GFR (MDRD EQUATION) > 60; POTASSIUM 3.4 mMol/L (3.7-5.1); SODIUM 144 mMol/L (135-145); TOTAL BILIRUBIN 0.6 mg/dL (0.0-1.5); TOTAL PROTEIN 6.5 g/dL (6.0-8.4)
--- NOTE | 2016-07-17 16:12 | NUR ---
Significant Event: Alert and oriented X 3. Room air. VSS. Up with one assist and gait belt, hands on. Patient denies pain. Left side visual deficit. No issues with swallowing. Medicine taken whole with water. at bedside, helps with patient's needs. Pleasant and cooperation with cares. Follow up:
--- NOTE | 2016-07-18 02:12 | NUR ---
Significant Event: Denies pain. 1 assist with transfers. Neuro checks WNL. Voids without difficulty. On room air. A&Ox3. Takes pills whole in water. Follow up:
--- NOTE | 2016-07-18 11:09 | NUR ---
A-NUTRITION F/U CBW 62.6 KG; ADMIT WT 63.1 KG (+)BM. APPETITE IS REPORTED GOOD 07/17 LABS: K+ 3.4, ALB 3.0, PREALB 17.0. MEDS: K-TAB DIET RX: REGULAR. PO INTAKE IS 75-100% EST NUTR NEEDS: [id number] KCALS AND 63-69 GM PROTEIN. KCAL AND PROTEIN INTAKE FROM MEALS IS MEETING 100% OF BOTH KCAL AND PROTEIN NEEDS. D-NOT AT NUTRITION RISK; NO NUTRITION DX IDENTIFIED I-CONTINUE W/CURRENT DIET RX; EXPECT TO SEE PREALB TREND UP WITH CONTINUED GOOD PO INTAKE M/E-WILL ASSIST NEEDED
--- NOTE | 2016-07-18 12:24 | NUR ---
D: TR progress note for 07/18/16. I: Pt seen for 2 units at 1000 for community integration skills building, functional transfers, visual scanning and safety awareness. R: Pt seen for functional skills building working on scanning, mobility, safety awareness and community skills in anticipation for discharge back into community. Pt taken to [facility] to simulate community environment. Pt min > mod for reading signage, locating landmarks and reading maps for pathfinding skills with fair > poor safety awareness due to L) neglect. Pt transferred sit > stand from SBA, ambulated to/from [facility] chair 6 feet SBA, transferred in/out of chair SBA and back to SBA with cues for safety x1. Discussed safety concerns and possible outing with Weekend with spouse. P: Will continue to see to address goals and plan of care.
--- NOTE | 2016-07-18 16:02 | NUR ---
Significant Event: PATIENT IS ALERT/ORIENTED X 3. OKAY FOR TO TRANSFER PATIENT. HE DOES WELL WITH 1 ASSIST, DOES LEAN TOWARDS LEFT SIDE SLIGHTLY AT TIMES. VERY OPTIMISTIC, GOT TO WALK OUTSIDE WITH THERAPY TODAY. BLOOD PRESSURE THIS AM WAS 137/105, THIS AFTERNOON IT WAS DOWN TO 129/74. HAS A REPEAT HEAD CT TOMORROW, WE ARE TO CALL RESULTS TO DR. PUCKETT. Follow up:
--- NOTE | 2016-07-19 03:11 | NUR ---
Significant Event: Patient alert and oriented x3. Vital signs stable on room air. Slight left sided weakness and left sided visual neglect. Up with hands on assist, leans to left slightly. Denied pain all shift. Pneumatics on. Pleasant/cooperative with cares Follow up:
--- NOTE | 2016-07-19 11:39 | NUR ---
D: TR progress note for 07/19/16. I: Pt seen for 2 units at 1100 in group session for education on pain/stress management, coping strategies, group participation and leisure education. R: Pt seen for functional skills building working on stress management, relaxation and education on signs and symptoms of depression to increase knowledge in anticipation for discharge back into community. Pt actively participated in session, completed functional social communication skills independently which involved personal introduction of self and past favorite Easter Memory. Education completed by verbal discussion on the signs and symptoms that physical stress/pain can cause the body and how it affects healing along with identification of coping strategies, relaxation techniques, and options available. Pt's spouse attended session with pt. P: Will continue to see to address goals and plan of care.
--- NOTE | 2016-07-19 14:49 | NUR ---
Significant Event: Alert and oriented x 3. Up with 1A hands on. Leans slightly to the left. Left visual neglect. Denies pain. VSS on room air. Continent of bowel and bladder. present this shift. Helpful with cares. Uses call light appropriately. Cooperative with cares. Follow up:
--- NOTE | 2016-07-20 03:22 | NUR ---
Pt is alert ond oriented to person, place and time. Pt is pleasant and cooperative. Pt denies pain. Pt's assisted with HS cares. Pt is a stand by assist. Pt stated he "had a long day" and went to bed at 2000. Pt was up to void at night, tolerates activity.
[2016-07-20 05:38] LABS: BLOOD UREA NITROGEN 16 mg/dL (6-24); CALCIUM 8.7 mg/dL (8.5-10.5); CHLORIDE 108 mMol/L (96-110); CO2 29 mMol/L (22-32); CREATININE 0.8 mg/dL (0.6-1.3); ESTIMATED GFR (MDRD EQUATION) > 60; SODIUM 143 mMol/L (135-145)
--- NOTE | 2016-07-20 10:40 | NUR ---
Significant Event: Alert and oriented x 3. Up with 1A. ok to transfer patient. helps with cares. Leans slightly to the left. Denies pain. Continent of bowel and bladder. Cooperative with cares. Uses call light appropriately. Follow up:
--- NOTE | 2016-07-20 16:02 | NUR ---
D: Team Assembler Team Conference Follow up for 07/18/16 I: Input from patient/family R: Met with: patient, , Mayra Fraga DATA TECHNICAL LEAD Discussed rehab plan, patient progress, discharge plan and estimated length of stay of d/c planned in 1-2 weeks. Patient/Family Preference: patient is in agreement. Anticipated discharge disposition: home with support of . Education completed: Education was completed with patient and regarding length of stay, progress in therapy and d/c plan. Assessment/Recommendation: Team recommends d/c in 1-2 weeks. P: Case Coordination: Robert is a 75 year old man from [place], [place] admitted after a stroke. He has good support. Will follow and assist with d/c planning as needed.
--- NOTE | 2016-07-21 03:05 | NUR ---
Significant Event: A/O X 3. DENIES PAIN WHEN ASKED. AMBULATES TO BR WITH ONE ASSIST, GAITBELT AND WALKER VOIDS. HERE EARLIER THIS SHIFT, ASSIST WITH CARES. PATIENT TOLERATES ACTIVITY. SLIGHT LEAN TO LEFT. Follow up:
--- NOTE | 2016-07-21 11:25 | NUR ---
Significant Event: A/Ox3, makes needs known. Transfers/ambulates with SBA, walker, leans to L) slightly at times. assist with transfers and adls when she is here. VSS, denies pain. Follow up: c/o blurry vision, states had cataract surgery before the hemorrhage-was to have a refraction on 07/06 but was in hospital and missed it. Wonders if the altered vision is related to the cataract surgery or the bleed. Dr. Hernandez aware.
--- NOTE | 2016-07-21 16:05 | NUR ---
took over cares for this pt from juanita at 1200.
--- NOTE | 2016-07-22 04:25 | NUR ---
Significant Event: Patient alert and oriented. Up with 1 assist. Denies pain. VSS on room air. Vision continues to be distorted. Left neglect continues as well. Rested well throughout shift. Pleasant and cooperative with cares Follow up: continue to monitor
--- NOTE | 2016-07-22 13:12 | NUR ---
Significant Event: Alert and oriented x 3. Up with 1A hand held. is allowed to help with transfers. Denies pain. Left sided weakness. Eyes bother him throughout the day. Blurred vision bilat. Cooperative with cares. Uses call light appropriately. Follow up:
--- NOTE | 2016-07-23 03:50 | NUR ---
Significant Event:Pt returned from outing with around 1914, up with handheld/gaitbelt assist. assists with ambulation and bathroom trips. Denies pain. States eyes still are blurry--would like to have a more definitive answer to what is going on with his vision. Wants to have the drs here share the info with his eye dr for continuity of care/treatment. Denies pain to eyes. Did play a board game with last evening and pt stated it went well as far as vision concerns. Last bm on , Voids x 2, po intake sufficient. Uses call light appropriately. Follow up: Have hospitalist visit with pt r/t eyes/vision and pt/ would like the dr to share that info with his eye dr for followup.
--- NOTE | 2016-07-23 16:34 | NUR ---
Significant Event:PATIENT ALERT AND ORIENTED THIS SHIFT. VSS. TRANSFERS WITH 1 ASSIST AND GAIT BELT. AT BEDSIDE MOST OF THE SHIFT. PATIENT DID GO OUT FOR EASTER WITH FAMILY FOR ABOUT 3 HOURS TODAY. HAS DENIED PAIN. RESTS IN RECLINER MOST OF THE SHIFT WHEN HE WAS HERE. NO OTHER COMPLAINTS. Follow up:
--- NOTE | 2016-07-24 03:53 | NUR ---
Significant Event:A/O. SBA transfers. Up to bathroom x1 during night. Continent. Calf pumps on. Denies need for any PRN medication at this time. present at bedside until 1930. Call light within reach. Pleasant. Follow up:
[2016-07-24 06:29] LABS: ALBUMIN 3.1 gm/dL (3.5-5.0); ALK PHOS 72 IU/L (33-138); ALT 21 IU/L (12-78); ANION GAP 9.8 (10.0-19.0); AST 15 IU/L (10-40); BLOOD UREA NITROGEN 15 mg/dL (6-24); CALCIUM 8.8 mg/dL (8.5-10.5); CHLORIDE 107 mMol/L (96-110); CO2 28 mMol/L (22-32); CREATININE 0.8 mg/dL (0.6-1.3); ESTIMATED GFR (MDRD EQUATION) > 60; POTASSIUM 3.8 mMol/L (3.7-5.1); SODIUM 141 mMol/L (135-145); TOTAL PROTEIN 6.5 g/dL (6.0-8.4)
[2016-07-24 06:30] LABS: TOTAL BILIRUBIN 0.4 mg/dL (0.0-1.5)
--- NOTE | 2016-07-24 15:15 | NUR ---
Significant Event:PATIENT ALERT AND ORIENTED THIS SHIFT. VSS. TRANSFERS WITH SBA, GAIT BELT AND WALKER. HAS DENIED PAIN THIS SHIFT. AT BEDSIDE MOST OF THE DAY. RESTS IN RECLINER WHEN NOT IN THERAPY. NO OTHER COMPLAINTS. Follow up:
--- NOTE | 2016-07-25 03:35 | NUR ---
Pt A&Ox3. VSS on RA. Up with SBA, gait belt. No complaints, denies pain. Has rested well this shift. Voiding and taking PO withought difficulties. Pleasant and cooperative with cares.
--- NOTE | 2016-07-25 08:43 | NUR ---
A-NUTRITION F/U CBW IS 63.2 KG; WT IS STABLE LABS: PREALB 23.0; THIS IS UP FROM 17.0 DIET RX: REGULAR. PO INTAKE 75-100% D-NOT AT NUTRITION RISK; NO NUTRITION RISK IDENTIFIED I-CONTINUE W/CURRENT DIET RX M/E-WILL ASSIST NEEDED
--- NOTE | 2016-07-25 11:42 | NUR ---
Significant Event: Patient alert and oriented. Up with standby assist. Minimal left sided weakness with left visual deficit. Forgetful at times. Follow up:
--- NOTE | 2016-07-26 02:34 | NUR ---
Significant Event: A/O x3. VSS on RA. Up with stand by assist. No Complaints, denies pain. Minimal Left side weakness and visual deficit to left side. Verbilized very little needs t/o shift. pleasant and cooperative with cares. call light within reach Follow up:
--- NOTE | 2016-07-26 11:10 | NUR ---
Significant Event: Patient alert and oriented. Up with 1 assist. can be up with him for transfers and ambulation. Left eye deficit. Shower with OT today. Follow up:
--- NOTE | 2016-07-27 03:41 | NUR ---
Significant Event:A/O. 1 assist with gaitbelt. VSS on room air. Denies pain. Vision blurred in left eye. Some left side deficit with hand grasp and gait. Calf pumps on. TEds removed for night. Bed alarm on. Call light within reach. Follow up:
--- NOTE | 2016-07-27 13:43 | NUR ---
Significant Event: Alert and oriented x 3. Up with 1A. okay to transfer. Denies pain. Vision in left eye blurred. Left side slightly weaker than right. Cooperative with cares. Follow up:
--- NOTE | 2016-07-27 14:50 | NUR ---
D: Polymerization Supervisor Team Conference Follow up for 07/25/2016 I: Input from patient/family R: Met with: patient, , Mayra Fraga CT SCAN TECHNICIAN Discussed rehab plan, patient progress, discharge plan and estimated length of stay of d/c planned in approx. 1 week. Patient/Family Preference: patient and are in agreement. Anticipated discharge disposition: home with outpatient therapy. Education completed: Education was completed with patient and regarding length of stay, progress in therapy and d/c plan. Assessment/Recommendation: Team recommends d/c in approx. 1 week. P: Case Coordination: Robert is a 75 year old man from [place], [place] admitted after a stroke. He has good family support. Plan is to d/c in approx. 1 week. Home safety evaluation is planned for Sunday. Will follow and assist as needed.
--- NOTE | 2016-07-28 02:55 | NUR ---
Significant Event:A/O. Transfer with stand by assist. able to assist as needed. Patient states "vision is the best its been in two weeks". Left eye is still somewhat blurred. Minimal left side deficit: hand and leg. Denies pain. Calf poumps on. Papi stockings off. Cooperative. Bed alarm on. Call light within reach. Follow up:
--- NOTE | 2016-07-28 11:48 | NUR ---
D: TR progress note for 07/28/16. I: Pt seen for 6 units at for community integration skills building, family training and home visit. R: Pt seen for functional skills building working on transfers, mobility, safety, community skills and family education in anticipation for discharge home. Pt taken home by (TR/OT) for training with spouse present. Pt preformed transfers in/out of vehicle at [facility] and at home with both times SBA and mod independent for BLE management. Pt able to ascend/descend 3 steps with SBA to enter/exit home with good recall for sequencing and safety. Pt at home completed transfers in/out of low chair, on/off toilets (x3) 15 inch each, in/out of kitchen chair on/off shower seat and in/out of bed all SBA with no LOB and good safety awareness. Pt ambulated household distances without difficulty demonstrating to maneuver in confining spaces and throughout home safely. Recommendations from OT/TR done along with education on energy conservation, safety in home and ways to adapt surfaces to increase ease to tasks. Pt not to have slight increase in fatigue be end of session. For more detailed information please see OT Home Visit Note on the 07/28/16. P: Will continue to see to address goals and plan of care.
--- NOTE | 2016-07-28 12:00 | NUR ---
D: OT home visit completed on 07/28/16. I: Patient seen 1x, from 10:05 to 11:30 , for home visit assessment. Patient, Occupational therapist, FIRE SERVICES PLUMBER, and Pt's were present. R: Patient completed the following tasks with the amount of assist listed. Also listed below are recommendations to increase safety and independence. BEDROOM: Functional mobility - SBA Bed transfer - independent for supine<>sit transfer Doorway access - SBA with mobility Bedside light access - Has night light available MASTER BATHROOM: Functional mobility - SBA Toilet transfer - modified independent, use of sink ledge for sit<>stand transfer. Toilet height:15" (May benefit from toilet riser-Pt already has one available) Shower transfer - Do not recommend use of shower in master bathroom due to stairway present to access shower. Doorway access - SBA with mobility RECOMMENDATIONS: Remove throw rug in master bathroom, toilet riser optional UPSTAIRS HALLWAY BATHROOM: Toilet transfer-modified independent, use of sink for sit<>stand transfer; toilet riser optional (15" toilet height) Tub transfer-SBA to step into tub. Recommend installation of grab bar vertically to ease safety for entering/exiting tub. Recommend standard shower chair with back. Pt may also benefit from handheld shower hose. RECOMMENDATIONS: Removal of throw rug, installation of grab bar to enter tub, standard shower chair with back, handheld shower hose BASEMENT BATHROOM: Toilet transfer-modified independent; 15" height; recommend toilet safety frame to promote safety with sit<>stand transfers Shower transfer-SBA to enter walk-in shower. Recommend grab bar on outer wall to ease entry/exit. Grab bar and built-in shower seat already available inside shower. Recommend non-skid surface for shower seat. Recommend shower statistical machine servicer. Optional removal of shower door and replacement with curtain to ease entry/exit. RECOMMENDATIONS: Installation of grab bar outside shower, non-skid surface for shower seat, toilet safety frame, shower statistical machine servicer. KITCHEN: Functional mobility - SBA Chair transfer - SBA Cupboard access -SBA Refrigerator access - SBA Sink use - SBA RECOMMENDATIONS: Removal of area rug underneath kitchen table due to fringe and removal of throw rug in front of kitchen sink to decrease fall risk. Instructed Pt on use of chair/stool PRN for sitting during cooking tasks as energy conservation strategy. LIVING ROOM: Functional mobility - SBA Chair transfer - SBA RECOMMENDATIONS: Push in piano bench to widen walkway and decrease fall hazard. Caution with area rug in living room. HOME ENTRY: Functional mobility - SBA Door access - SBA Stair negotiation - SBA for 3 stairs at front entry with railing present, SBA for 3 stairs at garage. Recommend installation of railing in garage. RECOMMENDATIONS: Installation of railing in garage. Removal of throw rug in laundry room or tacking down rug. BASEMENT: Stair negotiation: SBA for 12 steps up/down with single railing. Pt/spouse have arranged for additional railing to be installed. Recliner transfer: independent Functional mobility: SBA OUTDOOR MOBILITY: Door access/entry-way: SBA Mobility on deck: SBA ADDITIONAL INFORMATION: Car transfer - independent to enter/exit vehicle Endurance Level - Pt tolerates functional mobility/transfers throughout the home well with signs of mild fatigue at conclusion. GENERAL RECOMMENDATIONS: Recommend spouse supervision with tub/shower transfers to promote safety. P: Patient does agree to complete the above listed recommendations and home modifications. David Adams OTR/L (07/28/16)
--- NOTE | 2016-07-28 15:46 | NUR ---
Significant Event: Alert and oriented x 3. Up with 1A. able to transfer patient as needed. Denies pain. Vision in left eye is blurred. Plan to D/C tomorrow. Left side slightly weeaker. Cooperative with cares. Follow up:
[2016-07-28] MEDS ORDERED: NORVASC2.5 MG PO (16:05)
[2016-07-28] MEDS ORDERED: B COMPLEX1 EACH PO (16:15)
[2016-07-28] MEDS ORDERED: FOLIC ACID 40400 MCG PO (16:22)
[2016-07-28] MEDS ORDERED: K-TAB ER20 MEQ PO (16:23)
--- NOTE | 2016-07-29 03:53 | NUR ---
Significant Event: A/O x3. Transfer with stand by assist. is able to assist with cares as needed. Denies Pain. Minimal left side deficit. Blurred visoiin to left eye. Pleasant and cooperative with cares. Calf pumps on. light light within reach. Plan to D/C in AM. Follow up:
--- NOTE | 2016-07-29 10:35 | NUR ---
Significant Event:Pt awake on rounds this am, anxious to go home, plans to go approx. 1000, plans to be here approx. 0900. Pt dressed self with stand by assist. Alert and orientated x 3. Took am meds whole with water and without difficulty. L eye vision blurred, pt reports it seems to be getting better gradually. Pt Independant with transfers. Steady on feet. Dr Segal notified pt leaving this am, he did come and review chart and pt, with no changes. Pt own med sent with pt. Mary Jane finished packing few items she did not get previously. Reviewed dischage summary, med prescription, follow up apts. [id number] VANG took pt per wheel chair to awaiting car. Pt discharged to care of for transport home. Pt reported he will be taking his out later today, as it is her birthday.
--- NOTE | 2016-08-04 12:04 | NUR ---
D: Respiratory Care Specialist Discharge Note for 07/29/16 I: Input from Patient/Family R: Patient to discharge On: 07/29/16 With: Disposition: home with outpatient therapy. Resource Discussed: discussed outpatient therapy. Therapy Recommendation: see therapy notes Equipment Recommendations: see therapy notes Financial Resources Used: patient has Medicare and [employer] Other referrals: referral to [facility] outpatient vision clinic Patient/Family education completed: prior to d/c. Patient/Family preference: in agreement. Plan of Care and Goal summary: met all CM goals. P: Complete follow up within one week: call patient next week to see how he is doing post discharge.
== END 2016-07-29 10:00 | disposition disaster alternative care site (69) | DRG 57 ==
LOC: GIRP 09:37
PROVIDERS: ADMIT Physical Medicine & Rehabilitation
DX: I69.154 Hemiplegia and hemiparesis following nontraumatic intracerebral hemorrhage affecting left non-dominant side (principal); H53.462 Homonymous bilateral field defects, left side; I10 Essential (primary) hypertension; R26.81 Unsteadiness on feet; Z91.81 History of falling; E87.6 Hypokalemia; M81.0 Age-related osteoporosis without current pathological fracture; R39.15 Urgency of urination; Z74.1 Need for assistance with personal care

== ENCOUNTER → 2016-09-25 | Outpatient (CLI) | payer MEDICARE, OTHER ==
[~2016-09-25] MED LIST changes: +B COMPLEX1 EACH PO; +FOLIC ACID 40400 MCG PO; +K-TAB ER20 MEQ PO; +NORVASC2.5 MG PO
== END | disposition disaster alternative care site (69) ==
LOC: GRAD 10:59
DX: I61.9 Nontraumatic intracerebral hemorrhage, unspecified (principal); G93.0 Cerebral cysts